=== PATIENT | female | born 1995 | race American Indian/Alaskan Native ===

== ENCOUNTER 2016-10-23 05:36 | Inpatient (IN) | payer MEDICAID, SELFPAY ==
[2016-10-23] MEDS ORDERED: Lidocaine 1% 50 ML MDV INJECT ONE (07:17)
[2016-10-23] MEDS ORDERED: Nalbuphine 20 MG/1 ML Amp IVPUSH PRN (07:17)
[2016-10-23] MEDS ORDERED: Ondansetron 4 MG/2 ML SDV IVPUSH PRN ×2 (07:17→11:55)
[2016-10-23] MEDS ORDERED: Sodium Chloride 0.9% 10 ML Syringe FLUSH PRN (07:17)
[2016-10-23] MEDS ORDERED: Lactated Ringers 1,000 ML IV SCH (07:30)
[2016-10-23] MEDS ORDERED: Oxytocin/Lactated Ringers 10 UNIT/1,000 ML BAG IV SCH ×2 (07:30)
--- NOTE | 2016-10-23 08:26 | HP ---
DATE OF ADMISSION: 10/23/2016 ADMISSION DIAGNOSIS: 41 and 2/7th-week intrauterine , elective induction of labor. HISTORY OF PRESENT ILLNESS: The patient is a 20-year-old, 2, para 1-0-0-1, lady who is admitted for elective induction of labor for dates of greater than 41 weeks. The procedure of Pitocin induction with artificial rupture of membranes augmentation was discussed in detail with the patient including the risks, benefits, alternatives of care and followup. Also limitations of induction discussed with the patient. She appears to understand, wishes to proceed, and is admitted for this reason. 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 Her due date is set at 10/14/2016 by an early ultrasound done at 22 and 0/7th-week gestational age. This was supported by another ultrasound done on 06/17/2016 and a third one done on 07/29/2016. Her previous obstetric history includes LMP, which is approximate at 01/03/2016. She was using no control at the time of conception. Menarche at approximately age 12. Her last delivery was on 12/12/2014 at 41 and 5/7th-week gestational age after 24 hours of labor - 6 pounds 6 ounce female , named Dayami Aguila. The patient had an epidural with that delivery. COURSE: The patient was seen somewhat later in at 22 weeks. She was seen regularly thereafter. She had a weight gain of approximately 29 pounds from her pregravid weight reported. Her vital signs have been stable throughout the course. heart rate has been good and baby has been active. Her fundal height growth has been appropriate for dates. She declined genetic testing. She desires an epidural in labor and delivery. Her group B strep screen was negative. She did have some hemorrhoidal concerns during . She does plan to breast-feed. She had an adnexal cyst noted on ultrasound, which will be evaluated again in the period. Her Tdap vaccination was given on 09/02/2016. Laboratory testing in shows blood to be A positive with a negative antibody screen. Her initial hemoglobin was 11.6 at the time of the onset of her care. Her platelets were 210,000. She is rubella immune. RPR is nonreactive. Urine culture was negative. Hepatitis B and HIV assays were negative. GC and chlamydia assays were negative. Her second trimester testing showed her 1-hour GTT was 101, her hemoglobin was 11.3, and platelets were 204,000. Her group B strep screen was negative. ALLERGIES: None. CURRENT MEDICATIONS: 1. vitamins 1 daily. 2. Iron in the form of ferrous sulfate 325 mg per day. PAST MEDICAL HISTORY: Normal spontaneous vaginal delivery, 12/12/2014. PAST SURGICAL HISTORY: Unremarkable. FAMILY HISTORY: Mother is alive and well as is father. One brother and one sister are alive and well. Maternal grandmother is secondary to heart disease. Maternal grandfather secondary to kidney problems. Paternal grandmother secondary to adult-onset diabetes complications. Paternal grandfather is alive and well. The patient reports no bleeding, blood clotting, anesthesia, or problems in the family. SOCIAL HISTORY: The patient is single. She is a student. She has a high school education. She lives in [place], [place]. Her significant other is, Dannielle Aguila. She does not use any significant amounts of alcohol, drugs, or tobacco. REVIEW OF SYSTEMS: SKIN: Negative. CARDIOVASCULAR: No chest pain or exercise intolerance. RESPIRATORY: No asthma, infectious symptoms, or wheezing. BREASTS: Changes associated with . GI: Negative. : Changes associated with . MUSCULOSKELETAL: Some edema noted on occasion secondary to . NEUROLOGIC: Negative. PHYSICAL EXAMINATION: VITAL SIGNS: On last evaluation in clinic, 10/21/2016; her blood pressure was 122/64; weight was 219 pounds, which has increased 29 pounds from pregravid weight. heart rate was 149. Her height is 5 feet 4 inches. Pregravid weight was 190. GENERAL: The patient is a well-developed, well-nourished, overweight female in no acute distress. She is alert and oriented x3 and appears to be a good historian. HEENT: Neck and back within normal limits. SKIN: Warm and dry without lesions. CARDIOVASCULAR: Shows regular rate and rhythm. LUNGS: Clear with good breath sounds in all lung [place]. BREASTS: Deferred at this time having been done at the first visit and found to be normal. ABDOMEN: Protuberant with with fundal height of 39 cm, baby in vertex presentation. Cervix on last evaluation in clinic was 2 cm, 80% effaced, soft, -3 station, posterior. EXTREMITIES: Showed trace edema. NEUROLOGIC: Within normal limits. ASSESSMENT: 1. 41 and 2/7th-week intrauterine by second trimester ultrasound. She is admitted for elective induction of labor with Pitocin and artificial rupture of membranes. 2. Group B streptococcus screen negative. 3. The patient desires epidural in labor. 4. The patient plans to nurse. PLAN: 1. Pitocin induction of labor with artificial rupture of membranes as possible. Procedure, risks, benefits, and alternatives of care including natural onset of labor were all discussed with the patient. She appears to understand and wishes to proceed. 2. Intermittent electronic monitoring. 3. Epidural p.r.n. for the patient. 4. Support nursing decision. MMTRENA /[id number]
[2016-10-23] MEDS ORDERED: fentaNYL 100 MCG/2 ML SDV EPIDUR PRN (11:55)
[2016-10-23] MEDS ORDERED: diphenhydrAMINE 50 MG/ML SDV IVPUSH PRN (11:55)
--- NOTE | 2016-10-23 11:55 | PCM.PREANE ---
Preanesthetic Assessment - Procedure Proposed Procedure: Labor epidural - Anesthesia/Transfusion/Family Hx Anesthesia History: Prior Anesthesia Without Reaction Type of Anesthesia Reaction: Unknown Family History of Anesthesia Reaction: No Transfusion History: No Prior Transfusion(s) Intubation History: Unknown Additional History: Patient denies any medical conditions - Review of Systems General: No Symptoms Pulmonary: No Symptoms Cardiovascular: No Symptoms Gastrointestinal: No symptoms Neurological: No Symptoms Other: Reports: None - Physical Assessment NPO Status Date: 10/23/16 NPO Status Time: 11:00 O2 Sat by Pulse Oximetry: 99 Respiratory Rate: 18 Vital Signs: Last Vital Signs Temp 36.1 C 10/23/16 07:45 Pulse 48 L 10/23/16 07:45 Resp 18 10/23/16 07:45 BP 107/68 10/23/16 07:45 Pulse Ox 99 10/23/16 07:45 Height: 1.63 m Weight: 98.157 kg ASA Class: 2 Mental Status: Alert & Oriented x3 Airway Class: Mallampati = 2 Dentition: Reports: Normal Dentition Thyro-Mental Finger Breadths: 3 Mouth Opening Finger Breadths: 3 ROM/Head Extension: Full Lungs: Clear to auscultation, Normal respiratory effort Cardiovascular: Regular Rate, Regular Rhythm - Lab Values: Laboratory Last Values WBC 9.42 K/mm3 (3.98-10.04) 10/23/16 08:25 RBC 4.25 M/mm3 (3.98-5.22) 10/23/16 08:25 Hgb 11.7 gm/L (11.2-15.7) 10/23/16 08:25 Hct 35.8 % (34.1-44.9) 10/23/16 08:25 MCV 84.2 fl (79.4-94.8) 10/23/16 08:25 MCH 27.5 pg (25.6-32.2) 10/23/16 08:25 MCHC 32.7 g/dl (32.2-35.5) 10/23/16 08:25 RDW Std Deviation 44.0 fL (36.4-46.3) 10/23/16 08:25 Plt Count 179 K/mm3 (182-369) L 10/23/16 08:25 MPV 10.5 fl (9.4-12.3) 10/23/16 08:25 Neut % (Auto) 72.7 % (34.0-71.1) H 10/23/16 08:25 Lymph % (Auto) 20.2 % (19.3-51.7) 10/23/16 08:25 [place] % (Auto) 5.3 % (4.7-12.5) 10/23/16 08:25 Eos % (Auto) 1.0 (0.7-5.8) 10/23/16 08:25 Baso % (Auto) 0.2 % (0.1-1.2) 10/23/16 08:25 Neut # (Auto) 6.85 K/mm3 (1.56-6.13) H 10/23/16 08:25 Lymph # (Auto) 1.90 K/mm3 (1.18-3.74) 10/23/16 08:25 [place] # (Auto) 0.50 K/mm3 (0.24-0.36) H 10/23/16 08:25 Eos # (Auto) 0.09 K/mm3 (0.04-0.36) 10/23/16 08:25 Baso # (Auto) 0.02 K/mm3 (0.01-0.08) 10/23/16 08:25 - Allergies Allergies/Adverse Reactions: Allergies Allergy/AdvReac Type Severity Reaction Status Date / Time No Known Allergies Allergy Verified 10/23/16 07:14 - Blood Blood Available: No Product(s) Available: None - Anesthesia Plan Pre-Op Medication Ordered: None - Acknowledgements Anesthesia Type Planned: Epidural Pt an Appropriate Candidate for the Planned Anesthesia: Yes Alternatives and Risks of Anesthesia Discussed w Pt/Guardian: Yes Pt/Guardian Understands and Agrees with Anesthesia Plan: Yes PreAnesthesia Questionnaire - Past Health History Medical/Surgical History: Denies 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/Surgical 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: - SUBSTANCE USE Smoking Status *Q: Never Smoker Second Hand Smoke Exposure: No Days Per Week of Alcohol Use: 0 Recreational Drug Use History: No - HOME MEDS Home Medications: Home Meds Vit with Ca/FA/Iron [ Plus Iron] 1 each PO DAILY #100 tablet [Rx] Ferrous Sulfate [Iron] 325 mg PO DAILY 10/23/16 [History] - CURRENT (IN HOUSE) MEDS Current Meds: Current Medications Lactated Ringer's (Ringers, Lactated) 1,000 mls @ 100 mls/hr IV ASDIRECTED SERGIO Lactated Ringer's (Ringers, Lactated) 1,000 mls @ 40 mls/hr IV ASDIRECTED SERGIO Last Admin: 10/23/16 08:05 Dose: 40 mls/hr Oxytocin/Lactated Ringer's (Pitocin In Lr 10 Units/1,000 Ml) 10 unit in 1,000 mls @ 500 mls/hr IV ASDIRECTED SERGIO PRN Reason: Protocol Oxytocin/Lactated Ringer's (Pitocin In Lr 10 Units/1,000 Ml) 10 unit in 1,000 mls @ 12 mls/hr IV TITRATE SERGIO; 2 MUNITS/MIN PRN Reason: Protocol Last Titration: 10/23/16 11:28 Dose: 12 munits/min, 72 mls/hr Nalbuphine HCl (Nubain) 10 mg IVPUSH Q2H PRN PRN Reason: Pain (moderate 4-6) Ondansetron HCl (Zofran) 4 mg IVPUSH Q4H PRN PRN Reason: Nausea/Vomiting Sodium Chloride (Saline Flush) 10 ml FLUSH ASDIRECTED PRN PRN Reason: Keep Vein Open Discontinued Medications Lidocaine HCl (Xylocaine 1%) 20 ml INJECT ONETIME ONE Stop: 10/23/16 07:18
[2016-10-23] MEDS ORDERED: Bupivacaine/fentaNYL/NS 100 ML Bag EPIDUR SCH (12:00)
[2016-10-23] MEDS ORDERED: Bupivacaine 0.25% 10 ML SDV ONE (12:00)
[2016-10-23] MEDS: Lactated Ringers 1,000 ML IV SCH ×2 (17:24→18:33)
--- NOTE | 2016-10-23 21:13 | PCM.SN ---
- Free Text/Narrative Note: Rissa is a 20-year-old 2 para 2002 lady who is admitted this a.m. for elective induction of labor with Pitocin at 41-2/7 weeks gestational age. She progressed very slowly to approximately 1700 hrs. today at which time artificial rupture membranes was undertaken and she is approximately 4-5 cm and 90% effaced. She progressed more quickly than to complete cervical dilation and pushed for approximately 1 hour. She delivered a viable, tian, male infant with Apgars of 9 and 9, a weight of 3490 g (7 lbs. 11 oz.), a length of 20.5 inches in a right occiput posterior position. Baby rotated just at the end before delivery. Nose and mouth were bulb suctioned and baby was delivered to the abdomen of the mother. Cord was allowed to pulsate for approximately 1 minute and then was clamped 2 and cut by the father. Patient had a second-degree laceration of the perineum which was repaired with 3 -0 Monocryl. This with the use of epidural anesthesia. The placenta delivered intact, complete in appearance in a Schutlz presentation. The umbilical cord had 3 vessels. Estimated blood loss was 300 mL. Patient plans to bottle and breast-feed. Pitocin was administered after the baby delivered.
[2016-10-23] MEDS ORDERED: Benzocaine/Menthol 20%-0.5% Spray 56 GM Canister TOP PRN (21:33)
[2016-10-23] MEDS ORDERED: Docusate Sodium 100 MG Cap PO PRN (21:33)
[2016-10-23] MEDS ORDERED: Witch Hazel Medicated Pads 100/Jar TOP PRN (21:33)
[2016-10-23] MEDS ORDERED: Acetaminophen 325 MG Tab PO PRN (21:33)
[2016-10-23] MEDS ORDERED: Lanolin 100% Cream 7 GM Tube TOP PRN (21:33)
[2016-10-23] MEDS ORDERED: Ibuprofen 600 MG Tab PO PRN (21:33)
[2016-10-24 13:08] VITALS: BP 105/53
--- NOTE | 2016-10-24 16:26 | PCM.DCSUM1 ---
Discharge Summary - Hospital Course Free Text/Narrative:: Rissa is a 20-year-old 2 para 2002 lady who is admitted a.m. for elective induction of labor with Pitocin at 41-2/7 weeks gestational age. She progressed very slowly to approximately 1700 hrs. today at which time artificial rupture membranes was undertaken and she is approximately 4-5 cm and 90% effaced. She progressed more quickly than to complete cervical dilation and pushed for approximately 1 hour. She delivered a viable, tian, male with Apgars of 9 and 9, a weight of 3490 g (7 lbs. 11 oz.), a length of 20.5 inches in a right occiput posterior position. Baby rotated just at the end before delivery. Nose and mouth were bulb suctioned and baby was delivered to the abdomen of the mother. Cord was allowed to pulsate for approximately 1 minute and then was clamped 2 and cut by the father. Patient had a second-degree laceration of the perineum which was repaired with 3 -0 Monocryl. This with the use of epidural anesthesia. The placenta delivered intact, complete in appearance in a Schutlz presentation. The umbilical cord had 3 vessels. Estimated blood loss was 300 mL. Patient plans to bottle and breast-feed. Pitocin was administered after the baby delivered. The lochia and has had normal vital signs. A follow-up CBC is within normal limits for the period and she is desiring discharge home. - Discharge Data Discharge Date: 10/24/16 Discharge Disposition: Home, Self-Care 01 Condition: Good - Patient Instructions Diet: Regular Diet as Tolerated (Nursing diet with increased calcium and calories as directed) Activity: As Tolerated (No intercourse or tampons until bleeding resolves) Driving: May Drive Today Showering/Bathing: May Shower (May take a bath) Notify Provider of: Fever, Increased Pain, Swelling and Redness, Nausea and/or Vomiting - Discharge Plan Home Medications: Home Meds Vit with Ca/FA/Iron [ Plus Iron] 1 each PO DAILY #100 tablet [Rx] Ferrous Sulfate [Iron] 325 mg PO DAILY 10/23/16 [History] Ibuprofen [IJD: Ibuprofen] 600 mg PO Q4H PRN #30 tablet 10/24/16 [Rx] Patient Handouts: Home Care Instructions for Mom Referrals: Cm South MD [Primary Care Provider] - ([facility] - Discharge Summary/Plan Comment DC Time >30 min.: No Discharge Summary/Plan Comment: Discharge instructions: 1. Discharge home 2. Regular, high fiber, nursing diet was increased calories and calcium as directed. 3. Precautions given concern increased pain, bleeding, temperature, signs/ symptoms of DVT/PE. 4. Medications per home medication was printed, discussed with and given to the patient. 5. Return to [facility]. Diagnosis 41-2/7 week intrauterine pregnancydelivered Condition: Good - Patient Data Vitals - Most Recent: Last Vital Signs Temp 36.7 C 10/24/16 12:35 Pulse 70 10/24/16 12:35 Resp 16 10/24/16 12:35 BP 105/53 L 10/24/16 12:35 Pulse Ox 97 10/24/16 12:35 Weight - Most Recent: 98.157 kg I&O - Last 24 hours: Intake & Output 10/24/16 10/24/16 10/24/16 06:59 14:59 22:59 Intake Total 20 240 Balance 20 240 Lab Results - Last 24 hrs: Laboratory Results - last 24 hr 10/24/16 Range/Units 06:48 WBC 10.62 H (3.98-10.04) K/mm3 RBC 3.57 L (3.98-5.22) M/mm3 Hgb 9.8 L (11.2-15.7) gm/L Hct 30.5 L (34.1-44.9) % MCV 85.4 (79.4-94.8) fl MCH 27.5 (25.6-32.2) pg MCHC 32.1 L (32.2-35.5) g/dl RDW Std Deviation 43.6 (36.4-46.3) fL Plt Count 155 L (182-369) K/mm3 MPV 10.5 (9.4-12.3) fl Med Orders - Current: Current Medications Acetaminophen (Tylenol) 650 mg PO Q4H PRN PRN Reason: mild pain or fever Benzocaine/Menthol (Dermoplast Pain Relief [place]) 0 gm TOP ASDIRECTED PRN PRN Reason: Perineal Comfort Measure Last Admin: 10/23/16 22:00 Dose: 1 applic Docusate Sodium (Colace) 100 mg PO BID PRN PRN Reason: Constipation Emollient Ointment (Lansinoh Hpa) 0 gm TOP ASDIRECTED PRN PRN Reason: Sore Nipples Ibuprofen (Motrin) 600 mg PO Q4H PRN PRN Reason: Mild pain or fever Witch Mary (Tucks) 1 pad TOP ASDIRECTED PRN PRN Reason: Hemorrhoid pain Last Admin: 10/23/16 22:00 Dose: 1 applic Discontinued Medications Bupivacaine HCl (Sensorcaine-Mpf 0.25%) 10 ml .ROUTE .[facility] ONE Stop: 10/23/16 12:01 Diphenhydramine HCl (Benadryl) 25 mg IVPUSH Q6H PRN PRN Reason: Pruritis Fentanyl (Sublimaze) 100 mcg EPIDUR Q3H PRN PRN Reason: Pain Last Admin: 10/23/16 17:28 Dose: 100 mcg Fentanyl/Bupivacaine HCl (Fentanyl/Bupivacaine/Ns 2 Mcg-0.125% 100 Ml) 100 ml EPIDUR ASDIRECTED [facility] Last Admin: 10/23/16 17:29 Dose: 100 ml Lactated Ringer's (Ringers, Lactated) 1,000 mls @ 100 mls/hr IV ASDIRECTED [facility] Last Admin: 10/23/16 18:33 Dose: 100 mls/hr Lactated Ringer's (Ringers, Lactated) 1,000 mls @ 40 mls/hr IV ASDIRECTED [facility] Last Admin: 10/23/16 08:05 Dose: 40 mls/hr Oxytocin/Lactated Ringer's (Pitocin In Lr 10 Units/1,000 Ml) 10 unit in 1,000 mls @ 500 mls/hr IV ASDIRECTED [facility] PRN Reason: Protocol Oxytocin/Lactated Ringer's (Pitocin In Lr 10 Units/1,000 Ml) 10 unit in 1,000 mls @ 12 mls/hr IV TITRATE SERGIO; 2 MUNITS/MIN PRN Reason: Protocol Last Titration: 10/23/16 14:24 Dose: 20 munits/min, 120 mls/hr Oxytocin 20 unit/ Lactated (Ringer's) 1,002 mls @ 60.12 mls/hr IV TITRATE SERGIO; 20 MUNITS/MIN PRN Reason: Protocol Last Titration: 10/23/16 20:30 Dose: 12 munits/min, 36.07 mls/hr Lidocaine HCl (Xylocaine 1%) 20 ml INJECT ONETIME ONE Stop: 10/23/16 07:18 Nalbuphine HCl (Nubain) 10 mg IVPUSH Q2H PRN PRN Reason: Pain (moderate 4-6) Ondansetron HCl (Zofran) 4 mg IVPUSH Q4H PRN PRN Reason: Nausea/Vomiting Ondansetron HCl (Zofran) 4 mg IVPUSH ONETIME PRN PRN Reason: Nausea/Vomiting Sodium Chloride (Saline Flush) 10 ml FLUSH ASDIRECTED PRN PRN Reason: Keep Vein Open *Q Meaningful Use (DIS) - VTE *Q VTE Criteria *Q: - Stroke *Q Stroke Criteria *Q: - AMI *Q AMI Criteria *Q:
== END 2016-10-24 18:14 | disposition home or self-care (01) | DRG 775 ==
LOC: JD.OB 07:04 → OBSVTOIN 20:50 → JD.OB 20:50
PROVIDERS: ADMIT Obstetrics & Gynecology; ATTEND Obstetrics & Gynecology
PROC: 10E0XZZ Delivery of Products of Conception, External Approach (ICD-10-PCS; principal; 2016-10-23)
PROC: 0KQM0ZZ Repair Perineum Muscle, Open Approach (ICD-10-PCS; 2016-10-23)
PROC: 3E033VJ Introduction of Other Hormone into Peripheral Vein, Percutaneous Approach (ICD-10-PCS; 2016-10-23)
PROC: 10907ZC Drainage of Amniotic Fluid, Therapeutic from Products of Conception, Via Natural or Artificial Opening (ICD-10-PCS; 2016-10-23)
PROC: 00HU33Z Insertion of Infusion Device into Spinal Canal, Percutaneous Approach (ICD-10-PCS; 2016-10-23)
PROC: 3E0R3CZ (ICD-10-PCS; 2016-10-23)
DX: O48.0 Post-term pregnancy (principal); O70.1 Second degree perineal laceration during delivery; O69.81X0 Labor and delivery complicated by cord around neck, without compression, not applicable or unspecified; Z3A.41 41 weeks gestation of pregnancy; Z37.0 Single live birth
CPT/HCPCS: 01967; 36415; 85025; 85027; A9270-GY; J2590; J3010; J7120

== ENCOUNTER 2017-12-21 04:07 | Inpatient (IN) | payer MEDICAID ==
[2017-12-21] MEDS ORDERED: Sodium Chloride 0.9% 10 ML Syringe FLUSH PRN (20:52)
[2017-12-21] MEDS ORDERED: Ondansetron 4 MG/2 ML SDV IVPUSH PRN (20:58)
[2017-12-21] MEDS ORDERED: Nalbuphine 20 MG/ML 1 ML Syringe IVPUSH PRN (20:58)
[2017-12-21] MEDS ORDERED: Oxytocin/Lactated Ringers 10 UNIT/1,000 ML BAG IV SCH (21:00)
[2017-12-21] MEDS: Oxytocin/Lactated Ringers 10 UNIT/1,000 ML BAG IV SCH ×2 (21:24→22:01)
[2017-12-21] MEDS: Lactated Ringers 1,000 ML IV SCH (21:24)
[2017-12-21] MEDS ORDERED: Bupivacaine 0.25% 10 ML SDV ONE (22:00)
--- NOTE | 2017-12-21 22:49 | HP ---
DATE OF ADMISSION: 12/21/2017 ADMISSION DIAGNOSIS: 41-3/7-week intrauterine , medical induction of labor for postdates. HISTORY OF PRESENT ILLNESS: The patient is a 22-year-old 3, para 2-0-0-2 female, who is admitted for medical induction of labor secondary to postdatism. She is presently approximately 2+ cm dilated, 80% effaced, soft, minus 3, very posterior. Her YISSEL was 12/11/2017 as determined by a certain last menstrual period starting 03/06/2017 and supported by an ultrasound done at 24-6/7 weeks on 09/03/2017. She reports good activity. 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 Her last menstrual period was 03/06/2017, was relatively certain. Cycles come every 28 days, menarche age 12, cycles no longer than 7 days. The patient has 2 previous pregnancies which are followin. Female infant born 12/12/2014 at 41-5/7 weeks' gestational age after 24 hours of labor - 6 pounds 6 ounces. Child's name is Dayami Aguila. 2. Male infant born 10/23/2016 at 41-2/7 weeks' gestational age after 13 hours of labor - 7 pounds 11 ounces - child's name is Seth. The patient was initially seen for care by myself at 25-5/7 weeks on 09/02/2017. Risk factors included late care, increased weight, and the patient living in [place], 2 hours away. She declined genetic testing. Her group B strep screen is positive. She plans on . Weight loss was from a pregravid weight of 213.8, down to 211 for a 2-pound weight loss actually. Her fundal height growth was appropriate during the last portion of the . LABORATORY TESTING IN : Blood is A positive with a negative antibody screen. Her rubella status is immune. RPR is nonreactive. Hepatitis B surface antigen test was negative. HIV assays were negative. Chlamydia and gonorrhea both negative. Her second- trimester testing showed hemoglobin to be 11.1 g/dL and platelets at 220,000. She was started on iron in the form of ferrous sulfate 325 mg p.o. daily. Repeat hemoglobin on 11/16/2017 had increased to 11.7 g/dL and platelets were 185,000. Group B strep screen negative. ALLERGIES: None. CURRENT MEDICATIONS: 1. vitamins 1 daily. 2. Ferrous sulfate 325 mg daily. PAST MEDICAL HISTORY: Vaginal delivery x2. FAMILY HISTORY: Mother is alive at age 51, has high blood pressure. Father is alive and well at age 51. One brother, one sister, both alive and well. Maternal grandfather and maternal grandmother , both causes unknown. Paternal grandfather is alive and well. Paternal grandmother is secondary to diabetic complications. Family history of cancer does not exist. She also reports no , anesthesia or bleeding problems in the . SOCIAL HISTORY: The patient is single. She is a [id number] mom. She lives in [place], [place]. She is a high school graduate. She does not use any significant amounts of alcohol, drugs, or tobacco. REVIEW OF SYSTEMS: SKIN: Negative. GENERAL: The patient reports good activity. Some uterine irritability, but no significant contractions otherwise. RESPIRATORY: No chest pain or shortness of breath. CARDIOVASCULAR: No exercise intolerance. BREASTS: Changes associated with . The patient plans to breast feed. GI: Negative. : Some irritability of the uterus, otherwise negative. Baby has been active. MUSCULOSKELETAL: Negative. NEUROLOGICAL: Negative. PSYCHOLOGICAL: Negative. PHYSICAL EXAMINATION: GENERAL: The patient is a well-developed, well-nourished, pleasant female, stated age, in no acute distress. VITAL SIGNS: Blood pressure on last evaluation in clinic was 110/68; weight was 211, having decreased from 213 at her transfer visit back in August. heart rate is 150. The patient's height is 5 feet 4 inches. Pregravid BMI was 33.5. HEENT: Within normal limits. NECK: Within normal limits. BACK: Within normal limits. LUNGS: Clear with good breath sounds in all lung [place]. CARDIOVASCULAR: Shows regular rate and rhythm without murmurs. BREASTS: Deferred at this time. ABDOMEN: Protuberant with with last fundal height in clinic at 39 cm with baby in vertex presentation. CERVIX: As above. EXTREMITIES: Show minimal edema, bilateral lower extremities. NEUROLOGICAL: Grossly within normal limits. ASSESSMENT: 1. 41-3/7-week gestational age , medical induction of labor for postdates. 2. History of long labors with her first 2 children. 3. The patient is rubella immune. 4. Group B strep status is negative. 5. The patient is okay with epidural. 6. The patient plans to breastfeed. PLAN: 1. Pitocin induction of labor. 2. CBC with platelet count. 3. Routine labor care including intermittent monitoring, normal ambulation, and very light diet. 4. Epidural p.r.n. MMODAL /[id number]
[2017-12-22] MEDS: Lactated Ringers 1,000 ML IV SCH (01:53)
[2017-12-22] MEDS ORDERED: ePHEDrine 50 MG/ML SDV IV PRN (02:00)
[2017-12-22] MEDS ORDERED: Bupivacaine/fentaNYL/NS 100 ML Bag EPIDUR ONE (02:00)
[2017-12-22] MEDS ORDERED: Ondansetron 4 MG/2 ML SDV IV PRN (02:00)
[2017-12-22] MEDS ORDERED: diphenhydrAMINE 50 MG/ML SDV IV PRN (02:00)
[2017-12-22] MEDS ORDERED: fentaNYL 100 MCG/2 ML SDV EPIDUR ONE (02:00)
[2017-12-22] MEDS ORDERED: fentaNYL 100 MCG/2 ML SDV ONE (02:07)
[2017-12-22] MEDS ORDERED: Bupivacaine/fentaNYL/NS 100 ML Bag ONE (02:08)
[2017-12-22] MEDS ORDERED: Benzocaine/Menthol 20%-0.5% Spray 56 GM Canister TOP PRN (04:28)
[2017-12-22] MEDS ORDERED: Witch Hazel Medicated Pads 100/Jar TOP PRN (04:28)
[2017-12-22] MEDS ORDERED: Lanolin 100% Cream 7 GM Tube TOP PRN (04:28)
[2017-12-22] MEDS ORDERED: Docusate Sodium 100 MG Cap PO PRN (04:28)
[2017-12-22] MEDS ORDERED: Acetaminophen 325 MG Tab PO PRN (04:28)
--- NOTE | 2017-12-22 04:32 | PCM.SN ---
- Free Text/Narrative Note: Rissa is a 22-year-old 3 now para 3003 female with an YISSEL of 12/11/2017 presently at 41-4/7 weeks gestational age who was admitted last evening for medical induction of labor for postdates. She was started on Pitocin and progressed throughout the night. She had an epidural for labor analgesia. She became complete at approximately 0350 hrs. and began having a strong urge to push. Upon my arrival she pushed 1 time and delivered a viable, tian, female infant in a right occiput anterior position at 0407 hrs. The baby had Apgars of 8 and 9, a length of 20.5 inches and weight of 3160 g (6 pounds 15.5 ounces). The baby was placed on mom's abdomen. Cord was clamped 2 and then cut by the father. The umbilical cord had 3 blood vessels. Cord blood was obtained. There was a small first-degree laceration which was repaired with one single [id number] suture of 3-0 Monocryl. Epidural was used for anesthesia. The placenta delivered intact at 0411 hrs. It appeared complete and intact and was discarded per patient desire. Estimated blood loss was 100 mL. Condition: Good. Patient plans to breast-feed.
--- NOTE | 2017-12-22 09:59 | PCM48HPAN ---
Post Anesthesia Note - EVALUATION WITHIN 48HRS OF ANESTHETIC Vital Signs in Normal Range: Yes Patient Participated in Evaluation: No (asleep- spoke with family member) Respiratory Function Stable: Yes Airway Patent: Yes Cardiovascular Function Stable: Yes Hydration Status Stable: Yes Pain Control Satisfactory: Yes Nausea and Vomiting Control Satisfactory: Yes Mental Status Recovered: Yes Resp Rate: 16
[2017-12-22] MEDS: Ibuprofen 600 MG Tab PO PRN (20:30)
[2017-12-23] MEDS: Ibuprofen 600 MG Tab PO PRN ×2 (01:41→06:30)
--- NOTE | 2017-12-23 08:19 | PCM.DCSUM1 ---
Discharge Summary - Hospital Course Free Text/Narrative:: Risas is a 22-year-old 3 now para 3003 female with an YISSEL of [birth year]/11/2017 presently at 41-4/7 weeks gestational age who was admitted last evening for medical induction of labor for postdates. She was started on Pitocin and progressed throughout the night. She had an epidural for labor analgesia. She became complete at approximately 0350 hrs. and began having a strong urge to push. Upon my arrival she pushed 1 time and delivered a viable, tian, female in a right occiput anterior position at 0407 hrs. The baby had Apgars of 8 and 9, a length of 20.5 inches and weight of 3160 g (6 pounds 15.5 ounces). The baby was placed on mom's abdomen. Cord was clamped 2 and then cut by the father. The umbilical cord had 3 blood vessels. Cord blood was obtained. There was a small first-degree laceration which was repaired with one single [id number] suture of 3-0 Monocryl. Epidural was used for anesthesia. The placenta delivered intact at 0411 hrs. It appeared complete and intact and was discarded per patient desire. Estimated blood loss was 100 mL. Condition: Good. Patient plans to breast-feed. the patient is doing well. She is desiring discharge home. Diagnosis: Stroke: No - Discharge Data Discharge Date: 12/23/17 Discharge Disposition: Home, Self-Care 01 Condition: Good - Patient Instructions Diet: Regular Diet as Tolerated (Nursing diet was increased calories and calcium as recommended.) Activity: As Tolerated (No intercourse or tampons until bleeding resolves) Driving: Do Not Drive (1-2 days) Showering/Bathing: May Shower (May shower or take a bath.) Notify Provider of: Fever, Increased Pain, Swelling and Redness, Nausea and/or Vomiting - Discharge Plan *PRESCRIPTION DRUG MONITORING PROGRAM REVIEWED*: No *COPY OF PRESCRIPTION DRUG MONITORING REPORT IN PATIENT TAE: No Home Medications: Home Meds Vit with Ca/FA/Iron [ Plus Iron] 1 each PO DAILY #100 tablet [Rx] Ferrous Sulfate [Iron] 325 mg PO DAILY 10/23/16 [History] Acetaminophen [Tylenol] 650 mg PO Q4H PRN tablet 12/23/17 [Rx] Ibuprofen [Motrin] 600 mg PO Q4H PRN tablet 12/23/17 [Rx] Referrals: Cm South MD [Primary Care Provider] - ([facility].) - Discharge Summary/Plan Comment DC Time >30 min.: No Discharge Summary/Plan Comment: Discharge instructions: 1. Discharge home 2. Diet, activity and follow-up discussed with patient. Recommend nursing diet with increased calories and calcium. 3. Precautions given concern increased pain, bleeding, temperature, signs/ symptoms of DVT/PE. 4. Medications per home medication was printed, discussed with and given to the patient. 5. Return to clinic-Dr. [facility] in 2 weeks. Diagnosis: Term -delivered Condition: Good - Patient Data Vitals - Most Recent: Last Vital Signs Temp 36.8 C 12/23/17 04:24 Pulse 71 12/23/17 04:24 Resp 15 12/23/17 04:24 BP 94/68 12/23/17 04:24 Pulse Ox 99 12/23/17 04:24 Weight - Most Recent: 97.114 kg I&O - Last 24 hours: Intake & Output 12/22/17 12/23/17 12/23/17 22:59 06:59 14:59 Intake Total 300 Balance 300 Lab Results - Last 24 hrs: Laboratory Results - last 24 hr 12/21/17 12/23/17 Range/Units 21:15 06:45 WBC 10.05 H (3.98-10.04) K/mm3 RBC 3.93 L (3.98-5.22) M/mm3 Hgb 10.6 L (11.2-15.7) gm/L Hct 33.6 L (34.1-44.9) % MCV 85.5 (79.4-94.8) fl MCH 27.0 (25.6-32.2) pg MCHC 31.5 L (32.2-35.5) g/dl RDW Std Deviation 48.4 H (36.4-46.3) fL Plt Count 151 L (182-369) K/mm3 MPV 11.1 (9.4-12.3) fl RPR Non-reactive (NONREACTIVE) Med Orders - Current: Current Medications Acetaminophen (Tylenol) 650 mg PO Q4H PRN PRN Reason: mild pain or fever Benzocaine/Menthol (Dermoplast Pain Relief Mio) 0 gm TOP ASDIRECTED PRN PRN Reason: Perineal Comfort Measure Docusate Sodium (Colace) 100 mg PO BID PRN PRN Reason: Constipation Last Admin: 12/22/17 17:39 Dose: 100 mg Emollient Ointment (Lansinoh Hpa) 0 gm TOP ASDIRECTED PRN PRN Reason: Sore Nipples Ibuprofen (Motrin) 600 mg PO Q4H PRN PRN Reason: Mild pain or fever Last Admin: 12/23/17 06:30 Dose: 600 mg Witch Mary (Tucks) 1 pad TOP ASDIRECTED PRN PRN Reason: Hemorrhoid pain Discontinued Medications Diphenhydramine HCl (Benadryl) 25 mg IV Q4H PRN PRN Reason: Itching Stop: 12/22/17 05:00 Ephedrine Sulfate (Ephedrine Sulfate) 5 mg IV ASDIRECTED PRN PRN Reason: HYPOTENSION Stop: 12/22/17 05:00 Fentanyl (Sublimaze) Confirm Administered Dose 100 mcg .ROUTE .STK-MED ONE Stop: 12/22/17 02:08 Fentanyl (Sublimaze) 100 mcg EPIDUR ONETIME ONE Stop: 12/22/17 02:01 Fentanyl/Bupivacaine HCl (Fentanyl/Bupivacaine/Ns 2 Mcg-0.125% 100 Ml) Confirm Administered Dose 100 ml .ROUTE .STK-MED ONE Stop: 12/22/17 02:09 Fentanyl/Bupivacaine HCl (Fentanyl/Bupivacaine/Ns 2 Mcg-0.125% 100 Ml) 100 ml EPIDUR ONETIME ONE Stop: 12/22/17 02:01 Lactated Ringer's (Ringers, Lactated) 1,000 mls @ 40 mls/hr IV ASDIRECTED SERGIO Last Admin: 12/22/17 01:53 Dose: 40 mls/hr Oxytocin/Lactated Ringer's (Pitocin In Lr 10 Units/1,000 Ml) 10 unit in 1,000 mls @ 12 mls/hr IV TITRATE SERGIO; Protocol Last Titration: 12/22/17 02:05 Dose: 10 munits/min, 60 mls/hr Oxytocin/Lactated Ringer's (Pitocin In Lr 10 Units/1,000 Ml) 10 unit in 1,000 mls @ 500 mls/hr IV .CONTINUOUS SERGIO Nalbuphine HCl (Nubain) 10 mg IVPUSH Q2H PRN PRN Reason: pain Ondansetron HCl (Zofran) 4 mg IVPUSH Q4H PRN PRN Reason: Nausea/Vomiting Ondansetron HCl (Zofran) 4 mg IV Q6H PRN PRN Reason: Nausea Stop: 12/22/17 05:00 Sodium Chloride (Saline Flush) 10 ml FLUSH ASDIRECTED PRN PRN Reason: Keep Vein Open
[2017-12-23 11:44] VITALS: BP 115/77
== END 2017-12-23 10:55 | disposition home or self-care (01) | DRG 775 ==
LOC: JD.OB 04:07 → OBSVTOIN 12-22 04:07 → JD.OB 12-22 04:08
PROVIDERS: ADMIT Obstetrics & Gynecology; ATTEND Obstetrics & Gynecology
PROC: 10E0XZZ Delivery of Products of Conception, External Approach (ICD-10-PCS; principal; 2017-12-22)
PROC: 6A550ZT Pheresis of Cord Blood Stem Cells, Single (ICD-10-PCS; 2017-12-22)
PROC: 3E033VJ Introduction of Other Hormone into Peripheral Vein, Percutaneous Approach (ICD-10-PCS; 2017-12-22)
PROC: 0HQ9XZZ Repair Perineum Skin, External Approach (ICD-10-PCS; 2017-12-22)
PROC: 00HU33Z Insertion of Infusion Device into Spinal Canal, Percutaneous Approach (ICD-10-PCS; 2017-12-22)
PROC: 3E0R3BZ Introduction of Anesthetic Agent into Spinal Canal, Percutaneous Approach (ICD-10-PCS; 2017-12-22)
DX: O48.0 Post-term pregnancy (principal); Z3A.41 41 weeks gestation of pregnancy; O70.0 First degree perineal laceration during delivery; Z37.0 Single live birth
CPT/HCPCS: 36415; 51702; 59025; 59300; 59409; 85025; 85027; 86592; A9270-GY; J2590; J3490; J7120

== ENCOUNTER 2024-06-21 07:08 | Inpatient (IN) | payer SELFPAY ==
[2024-06-21] MEDS ORDERED: Acetaminophen 325 MG Tab PO PRN (07:26)
[2024-06-21] MEDS ORDERED: Calcium Carbonate 500 MG Tab.Chew PO PRN (07:26)
[2024-06-21] MEDS ORDERED: Nalbuphine 10 MG/1 ML Vial IVPUSH PRN (07:26)
[2024-06-21] MEDS ORDERED: Ondansetron 4 MG/2 ML SDV IVPUSH PRN (07:26)
[2024-06-21] MEDS ORDERED: Lidocaine 1% 50 ML MDV INJECT PRN (07:26)
[2024-06-21] MEDS ORDERED: Oxytocin/0.9 % Sodium Chloride 30 UNIT/500 ML BAG IV SCH (07:30)
[2024-06-21 08:05] LABS: BASOPHILS PERCENT AUTO 0.4 % (0.0-1.0); EOSINOPHILS ABSOLUTE AUTO 0.1 K/mm3 (0.0-0.4); EOSINOPHILS PERCENT AUTO 0.9 % (0.0-6.0); HEMATOCRIT 36.5 % (37.0-47.0); HEMOGLOBIN 11.5 gm/dl (12.0-16.0); IMMATURE GRAN ABSOLUTE AUTO 0.04 K/mm3 (0.00-0.05); IMMATURE GRAN PERCENT AUTO 0.5 % (0.0-0.4); LYMPHOCYTES PERCENT AUTO 24.1 % (24.0-44.0); MEAN CORPUSCULAR HEMOGLOBIN 26.1 pg (28.0-32.0); MEAN CORPUSCULAR HGB CONC 31.5 g/dl (32.0-36.0); MEAN PLATELET VOLUME 11.4 fl (9.4-12.3); MONOCYTES ABSOLUTE AUTO 0.3 K/mm3 (0.0-0.8); MONOCYTES PERCENT AUTO 3.7 % (0.0-8.0); NEUTROPHILS ABSOLUTE AUTO 5.8 K/mm3 (1.8-7.7); NEUTROPHILS PERCENT AUTO 70.4 % (41.0-71.0); PLATELET COUNT,PLT 168 K/mm3 (150-400); WHITE BLOOD CELL COUNT,WBC 8.19 K/mm3 (3.9-11.3)
[2024-06-21] MEDS: Misoprostol 25 MCG (1/4 of 100 MCG) Tab VAG SCH (08:21)
[2024-06-21] MEDS: Oxytocin/0.9 % Sodium Chloride 30 UNIT/500 ML BAG IV SCH (13:41)
[2024-06-21] MEDS: Lactated Ringers 1,000 ML IV SCH (13:41)
[2024-06-21] MEDS ORDERED: ePHEDrine 50 MG/ML SDV IVPUSH PRN (14:44)
[2024-06-21] MEDS ORDERED: diphenhydrAMINE 50 MG/ML SDV IVPUSH PRN (14:44)
[2024-06-21] MEDS: Bupivacaine/fentaNYL/NS 100 ML Bag EPIDUR PRN (17:30)
[2024-06-21] MEDS: Witch Hazel Medicated Pads 40/Jar TOP PRN (23:42)
[2024-06-21] MEDS: Ibuprofen 600 MG Tab PO SCH (23:42)
[2024-06-21] MEDS: Benzocaine/Menthol 20%-0.5% Spray 78 GM Cannister TOP PRN (23:43)
[2024-06-22 07:24] LABS: HEMOGLOBIN 11.8 gm/dl (12.0-16.0); MEAN CORPUSCULAR HEMOGLOBIN 26.5 pg (28.0-32.0); MEAN CORPUSCULAR HGB CONC 31.9 g/dl (32.0-36.0); MEAN PLATELET VOLUME 10.9 fl (9.4-12.3); PLATELET COUNT,PLT 157 K/mm3 (150-400); RED BLOOD CELL COUNT 4.46 M/mm3 (4.10-5.30)
[2024-06-22] MEDS: Prenatal Multivitamin with Calcium/Folic Acid/Iron Tab PO SCH (08:15)
[2024-06-22] MEDS: Docusate Sodium 100 MG Cap PO PRN (17:46)
[2024-06-22 20:49] VITALS: BP 120/64; PULSE 61
== END 2024-06-22 21:39 | disposition home or self-care (01) | DRG 807 ==
LOC: JD.OB 07:08 → OBSVTOIN 20:31 → JD.OB 20:32
PROVIDERS: ADMIT Family Medicine; ATTEND Family Medicine
PROC: 10E0XZZ Delivery of Products of Conception, External Approach (ICD-10-PCS; principal; 2024-06-21)
PROC: 10907ZC Drainage of Amniotic Fluid, Therapeutic from Products of Conception, Via Natural or Artificial Opening (ICD-10-PCS; 2024-06-21)
PROC: 3E0DXGC Introduction of Other Therapeutic Substance into Mouth and Pharynx, External Approach (ICD-10-PCS; 2024-06-21)
PROC: 0HQ9XZZ Repair Perineum Skin, External Approach (ICD-10-PCS; 2024-06-21)
PROC: 3E0R3BZ Introduction of Anesthetic Agent into Spinal Canal, Percutaneous Approach (ICD-10-PCS; 2024-06-21)
PROC: 00HU33Z Insertion of Infusion Device into Spinal Canal, Percutaneous Approach (ICD-10-PCS; 2024-06-21)
DX: O48.0 Post-term pregnancy (principal); Z37.0 Single live birth; O99.62 Diseases of the digestive system complicating childbirth; K21.9 Gastro-esophageal reflux disease without esophagitis; O99.02 Anemia complicating childbirth; O70.0 First degree perineal laceration during delivery; Z3A.40 40 weeks gestation of pregnancy
CPT/HCPCS: 01967; 36415; 51702; 59025; 59409; 85025; 85027; 86592; 86850; 86900; 86901; A9270-GY; J3490; J7120; J7999